=== PATIENT | female | born 1935 | race Asian ===

== ENCOUNTER 2021-05-20 12:19 | Inpatient (IN) | payer MEDICARE ==
[~2021-05-20] VITALS: Ht 154.9 cm; Wt 54.2 kg
[2021-05-20 13:49] LABS: BASOPHILS % (AUTO) 0.5 % (0.0-2.0); EOSINOPHILS % (AUTO) 0.2 % (1.0-6.0); HEMATOCRIT 41.6 % (36-46); HEMOGLOBIN 13.4 g/dL (12.0-16.0); MEAN CORPUSCULAR HEMOGLOBIN 26.2 pg (26.0-34.0); MEAN CORPUSCULAR HGB CONC 32.3 G/dL (31.0-37.0); MEAN CORPUSCULAR VOLUME 81 fL (80-100); MONOCYTES # (AUTO) 0.4 K/uL (0.1-1.0); MONOCYTES % (AUTO) 4.8 % (2.0-9.0); NEUTROPHILS % (AUTO) 81.5 % (40.0-70.0); PLATELET COUNT (AUTO) 218 K/uL (150-450); RED BLOOD CELL COUNT(AUTO) 5.12 MIL/uL (4.00-5.20); RED CELL DISTRIBUTION WIDTH 15.7 % (11.5-14.5)
[2021-05-20 13:55] LABS: ANION GAP 11 mmol/L (8-16); CALCIUM, TOTAL 9.1 mg/dL (8.8-10.5); CARBON DIOXIDE 25 mmol/L (22-29); CHLORIDE 99 mmol/L (98-107); CREATININE 0.84 mg/dL (0.60-1.30); GLOMERULAR FILTR. RATE CALC > 60 mL/min (>60); GLUCOSE,RANDOM 189 mg/dL (70-110); SODIUM SERUM 135 mmol/L (136-145); UREA NITROGEN, BLOOD 15 mg/dL (7-18)
[2021-05-20 14:01] LABS: ALANINE AMINOTRANSFERASE 40 U/L (12-78); ALBUMIN 4.1 g/dL (3.4-5.0); ALKALINE PHOSPHATASE 82 U/L (46-116); ASPARTATE AMINOTRANSFERASE 32 U/L (15-37); BILIRUBIN,TOTAL 1.1 mg/dL (0.1-1.0); TOTAL PROTEIN, SERUM 8.1 g/dL (6.4-8.2)
[2021-05-20 14:07] LABS: B-TYPE NATRIURETIC PEPTIDE 428 pg/mL (0-100)
[2021-05-20] MEDS ORDERED: DILTIAZEM HCL 5 MG/ML 5 ML VIAL IVP ONE (14:15)
[2021-05-20] MEDS ORDERED: CALCIUM GLUCONATE 100 MG/ML 10 ML IVP ONE (14:15)
[2021-05-20] MEDS ORDERED: FUROSEMIDE 40 MG/4 ML VIAL IVP ONE (14:15)
[2021-05-20] MEDS ORDERED: ONDANSETRON HCL 4 MG/2 ML VIAL IVP ONE (14:15)
[2021-05-20] MEDS ORDERED: ONDANSETRON HCL 4 MG/2 ML VIAL IVP PRN ×2 (15:15→15:45)
[2021-05-20] MEDS ORDERED: 0.9% SODIUM CHLORIDE 10 ML SYRINGE IVP PRN (15:15)
[2021-05-20] MEDS ORDERED: METOPROLOL TARTRATE 50 MG TABLET PO ONE (15:15)
[2021-05-20] MEDS ORDERED: ACETAMINOPHEN 325 MG TABLET PO PRN ×2 (15:15→15:45)
[2021-05-20] MEDS ORDERED: ZOLPIDEM TARTRATE 5 MG TABLET PO PRN (15:45)
[2021-05-20] MEDS ORDERED: MAGNESIUM HYDROXIDE SUSPENSION 30 ML UDCUP PO PRN (15:45)
[2021-05-20] MEDS ORDERED: BISACODYL 10 MG RECTAL RECTAL SUPPOSITORY PR PRN (15:45)
[2021-05-20] MEDS ORDERED: MORPHINE SULFATE 2 MG/ML SYRINGE IVP PRN (15:45)
[2021-05-20] MEDS ORDERED: HYDROCODONE/ACETAMINOPHEN 5-325 MG TABLET PO PRN (15:45)
[2021-05-20] MEDS: HEPARIN SODIUM,PORCINE 5,000 UNITS/ML VIAL SQ SCH (16:00)
[2021-05-20 16:15] VITALS: BP 99/53
[2021-05-20] MEDS ORDERED: DEXTROSE 50%-WATER 25 GM/50 ML SYRINGE IVP PRN (16:45)
[2021-05-20] MEDS: ASPIRIN 81 MG CHEWABLE TABLET PO SCH (17:00)
[2021-05-20] MEDS: INSULIN LISPRO 100 UNITS/ML SQ PRN ×2 (18:11→21:08)
[2021-05-20 19:14] VITALS: BP 99/51
[2021-05-20] MEDS: METOPROLOL TARTRATE 25 MG TABLET PO SCH (20:30)
[2021-05-20] MEDS: DOCUSATE SODIUM 100 MG CAPSULE PO SCH (20:30)
[2021-05-20 20:57] VITALS: BP_SYST 140; BP_SYST 67; BP_DIAS 18; BP_DIAS 67
[2021-05-20 21:22] LABS: GLUCOMETER DEV NAME(LOC) 5S.2B; GLUCOSE,POINT OF CARE 217 MG/DL (70-110)
[2021-05-20 21:22] LABS: GLUCOMETER DEV NAME(LOC) 5S.2B; GLUCOSE,POINT OF CARE 163 MG/DL (70-110)
[2021-05-21] VITALS (8 sets, daily range): BP systolic 94–124; BP diastolic 55–79
[2021-05-21] MEDS: HEPARIN SODIUM,PORCINE 5,000 UNITS/ML VIAL SQ SCH ×2 (00:38→08:29)
[2021-05-21] MEDS ORDERED: FUROSEMIDE 20 MG/2 ML VIAL IVP ONE (07:00)
[2021-05-21 07:49] LABS: BASOPHILS % (AUTO) 0.3 % (0.0-2.0); EOSINOPHILS % (AUTO) 0.3 % (1.0-6.0); HEMOGLOBIN 12.3 g/dL (12.0-16.0); LYMPHOCYTES # (AUTO) 1.2 K/uL (1.0-4.8); LYMPHOCYTES % (AUTO) 15.8 % (22.0-44.0); MEAN CORPUSCULAR HEMOGLOBIN 26.5 pg (26.0-34.0); MEAN CORPUSCULAR HGB CONC 32.4 G/dL (31.0-37.0); MEAN CORPUSCULAR VOLUME 82 fL (80-100); MONOCYTES # (AUTO) 0.4 K/uL (0.1-1.0); MONOCYTES % (AUTO) 4.9 % (2.0-9.0); NEUTROPHILS # (AUTO) 5.8 K/uL (1.8-7.7); NEUTROPHILS % (AUTO) 78.7 % (40.0-70.0); PLATELET COUNT (AUTO) 201 K/uL (150-450); RED BLOOD CELL COUNT(AUTO) 4.66 MIL/uL (4.00-5.20); RED CELL DISTRIBUTION WIDTH 15.4 % (11.5-14.5)
[2021-05-21 08:12] LABS: CALCIUM, TOTAL 8.6 mg/dL (8.8-10.5); CREATININE 1.41 mg/dL (0.60-1.30); POTASSIUM 5.4 mmol/L (3.5-5.1)
[2021-05-21 08:17] LABS: HEMOGLOBIN A1C 7.5 % (3.8-5.6)
[2021-05-21] MEDS: DOCUSATE SODIUM 100 MG CAPSULE PO SCH ×2 (08:29→20:33)
[2021-05-21] MEDS: PANTOPRAZOLE SODIUM 40 MG DR TABLET PO SCH (08:29)
[2021-05-21] MEDS: ASPIRIN 81 MG CHEWABLE TABLET PO SCH (08:29)
[2021-05-21] MEDS: METOPROLOL TARTRATE 25 MG TABLET PO SCH ×2 (09:00→20:26)
[2021-05-21] MEDS ORDERED: HEPARIN SODIUM,PORCINE 5,000 UNITS/ML VIAL IVP ONE (10:00)
[2021-05-21] MEDS ORDERED: HEPARIN SODIUM 25000 UNITS/D5W 250 ML IV PRN (10:00)
[2021-05-21] MEDS ORDERED: HEPARIN SODIUM,PORCINE 5,000 UNITS/ML VIAL IVP PRN ×2 (10:00)
[2021-05-21 10:31] LABS: PROTHROMBIN TIME 10.5 SEC (9.4-11.6)
[2021-05-21] MEDS ORDERED: SESTAMIBI TC99M/UD ISOTOPE 1 EA INJ INJ ONE ×2 (12:10→14:50)
[2021-05-21] MEDS ORDERED: SODIUM POLYSTYRENE SULFONATE 15 GM/60 ML SUSPENSION BOTTLE PO ONE (12:30)
[2021-05-21] MEDS ORDERED: REGADENOSON 0.4 MG/5 ML PF SYRINGE IVP ONE ×2 (13:30→14:09)
[2021-05-21] MEDS ORDERED: PNEUMOCOCCAL VACCINE POLYVALENT 0.5 ML VIAL [PPSV23] IM. ONE (16:00)
[2021-05-21] MEDS ORDERED: INFLUENZA VIRUS VACCINE QVS 2021-22 (6MO+)/PF 60 MCG/0.5 ML SYRINGE IM. ONE (16:00)
[2021-05-21 17:32] LABS: GLUCOMETER DEV NAME(LOC) 5S.1; GLUCOSE,POINT OF CARE 95 MG/DL (70-110)
[2021-05-21 17:32] LABS: GLUCOMETER DEV NAME(LOC) 5S.1; GLUCOSE,POINT OF CARE 180 MG/DL (70-110)
[2021-05-21] MEDS: INSULIN LISPRO 100 UNITS/ML SQ PRN ×2 (17:52→20:34)
[2021-05-21 18:24] LABS: APPEARANCE,URINE CLOUDY (CLEAR); BILIRUBIN,URINE NEGATIVE (NEGATIVE); GLUCOSE, URINE (UA) NEGATIVE (NEGATIVE); KETONES,URINE NEGATIVE (NEGATIVE); LEUKOCYTE ESTERASE ,URINE LARGE (NEGATIVE); NITRATE,URINE NEGATIVE (NEGATIVE); OCCULT BLOOD,URINE TRACE (NEGATIVE); PROTEIN,URINE NEGATIVE (NEGATIVE); UROBILINOGEN,URINE 0.2 mg/dL (<=1.0)
[2021-05-21 18:31] LABS: CREATININE,URINE RANDOM 77.1 mg/dL (30.0-125.0); PROTEIN,URINE RANDOM 19 mg/dL (0-11.9); SODIUM,URINE RANDOM 14 mmol/l (20-110); UREA NITROGEN,URINE RANDOM 581 mg/dL (350-1000)
[2021-05-21 18:56] LABS: AMORPHOUS SEDIMENT,UR None Seen /LPF (None Seen); BACTERIA,URINE Moderate /HPF (None Seen); CALCIUM OXALATE CRYSTALS,UR None Seen /LPF (None Seen); CALCIUM PHOSPHATE CRYSTALS,UR None Seen /LPF (None Seen); COARSE GRANULAR CASTS,URINE None Seen /LPF (None Seen); FINE GRANULAR CASTS,URINE None Seen /LPF (None Seen); HYALINE CASTS, URINE None Seen /LPF (None Seen); OTHER CASTS, URINE None Seen /LPF (None Seen); OTHER CRYSTALS,URINE None Seen /LPF (None Seen); RBC,URINE 0-2 /HPF (0-2); RENAL EPITHELIAL CELLS,URINE None Seen /LPF (None Seen); SQUAMOUS EPITHELIAL CELL,UR Few /LPF (None Seen); TRANSITIONAL EPI CELLS,URINE None Seen /LPF (None Seen); TRIPLE PHOSPHATE CRYSTAL,UR None Seen /LPF (None Seen); URIC ACID CRYSTALS,URINE None Seen /LPF (None Seen); YEAST,URINE None Seen /HPF (None Seen)
[2021-05-21 19:08] LABS: GLUCOMETER DEV NAME(LOC) 5S.2B; GLUCOSE,POINT OF CARE 156 MG/DL (70-110)
[2021-05-21] MEDS: FUROSEMIDE 40 MG/4 ML VIAL IVP SCH (20:33)
[2021-05-22 00:16] VITALS: BP 108/63
[2021-05-22 04:57] LABS: GLUCOMETER DEV NAME(LOC) 5S.2B; GLUCOSE,POINT OF CARE 155 MG/DL (70-110)
[2021-05-22 05:21] VITALS: BP 116/82
[2021-05-22] MEDS: INSULIN LISPRO 100 UNITS/ML SQ PRN ×2 (06:39→20:23)
[2021-05-22 08:03] LABS: GLUCOMETER DEV NAME(LOC) 5S.1; GLUCOSE,POINT OF CARE 141 MG/DL (70-110)
[2021-05-22 08:29] VITALS: BP 114/79
[2021-05-22] MEDS: PANTOPRAZOLE SODIUM 40 MG DR TABLET PO SCH (08:43)
[2021-05-22] MEDS: DOCUSATE SODIUM 100 MG CAPSULE PO SCH ×2 (08:44→20:21)
[2021-05-22] MEDS: METOPROLOL TARTRATE 25 MG TABLET PO SCH (08:44)
[2021-05-22] MEDS: ASPIRIN 81 MG CHEWABLE TABLET PO SCH (08:44)
[2021-05-22] MEDS: FUROSEMIDE 40 MG/4 ML VIAL IVP SCH (08:44)
[2021-05-22] MEDS: METOPROLOL SUCCINATE 25 MG ER TABLET PO SCH ×2 (09:45→10:39)
[2021-05-22 12:06] LABS: BASOPHILS % (AUTO) 0.4 % (0.0-2.0); HEMATOCRIT 34.9 % (36-46); HEMOGLOBIN 11.2 g/dL (12.0-16.0); LYMPHOCYTES # (AUTO) 1.2 K/uL (1.0-4.8); LYMPHOCYTES % (AUTO) 19.5 % (22.0-44.0); MEAN CORPUSCULAR HEMOGLOBIN 26.1 pg (26.0-34.0); MEAN CORPUSCULAR HGB CONC 32.1 G/dL (31.0-37.0); MEAN CORPUSCULAR VOLUME 81 fL (80-100); MONOCYTES # (AUTO) 0.4 K/uL (0.1-1.0); MONOCYTES % (AUTO) 6.7 % (2.0-9.0); NEUTROPHILS # (AUTO) 4.6 K/uL (1.8-7.7); NEUTROPHILS % (AUTO) 72.4 % (40.0-70.0); PLATELET COUNT (AUTO) 200 K/uL (150-450); RED BLOOD CELL COUNT(AUTO) 4.29 MIL/uL (4.00-5.20); RED CELL DISTRIBUTION WIDTH 15.7 % (11.5-14.5)
[2021-05-22 12:16] VITALS: BP 111/71
[2021-05-22 12:35] LABS: CREATININE 1.15 mg/dL (0.60-1.30); PHOSPHORUS 4.7 mg/dL (2.5-4.9)
[2021-05-22 13:10] LABS: GLUCOMETER DEV NAME(LOC) 5S.2B; GLUCOSE,POINT OF CARE 165 MG/DL (70-110)
[2021-05-22] MEDS ORDERED: PNEUMOCOCCAL VACCINE POLYVALENT 0.5 ML VIAL [PPSV23] IM. ONE (13:15)
[2021-05-22 15:36] VITALS: BP 123/50
[2021-05-22 19:10] LABS: GLUCOMETER DEV NAME(LOC) 5S.1; GLUCOSE,POINT OF CARE 180 MG/DL (70-110)
[2021-05-22 20:16] VITALS: BP 121/60
[2021-05-22] MEDS: APIXABAN 2.5 MG TABLET PO SCH (20:21)
[2021-05-22 20:40] LABS: GLUCOMETER DEV NAME(LOC) 5S.2B; GLUCOSE,POINT OF CARE 208 MG/DL (70-110)
[2021-05-23 00:12] VITALS: BP 115/68
[2021-05-23 06:03] VITALS: BP 120/62
[2021-05-23 06:51] LABS: BASOPHILS % (AUTO) 0.7 % (0.0-2.0); EOSINOPHILS % (AUTO) 1.2 % (1.0-6.0); HEMATOCRIT 33.7 % (36-46); HEMOGLOBIN 10.8 g/dL (12.0-16.0); LYMPHOCYTES # (AUTO) 1.4 K/uL (1.0-4.8); LYMPHOCYTES % (AUTO) 26.8 % (22.0-44.0); MEAN CORPUSCULAR HGB CONC 32.1 G/dL (31.0-37.0); MEAN CORPUSCULAR VOLUME 81 fL (80-100); MONOCYTES # (AUTO) 0.5 K/uL (0.1-1.0); MONOCYTES % (AUTO) 9.2 % (2.0-9.0); NEUTROPHILS # (AUTO) 3.3 K/uL (1.8-7.7); NEUTROPHILS % (AUTO) 62.1 % (40.0-70.0); PLATELET COUNT (AUTO) 197 K/uL (150-450); RED BLOOD CELL COUNT(AUTO) 4.17 MIL/uL (4.00-5.20); RED CELL DISTRIBUTION WIDTH 15.8 % (11.5-14.5)
[2021-05-23 07:04] LABS: CALCIUM, TOTAL 8.8 mg/dL (8.8-10.5); CREATININE 0.94 mg/dL (0.60-1.30); POTASSIUM 3.9 mmol/L (3.5-5.1)
[2021-05-23 07:36] VITALS: BP 139/73
[2021-05-23 07:47] LABS: GLUCOMETER DEV NAME(LOC) 5S.2B; GLUCOSE,POINT OF CARE 134 MG/DL (70-110)
[2021-05-23] MEDS: APIXABAN 2.5 MG TABLET PO SCH (08:58)
[2021-05-23] MEDS: ASPIRIN 81 MG CHEWABLE TABLET PO SCH (08:58)
[2021-05-23] MEDS: DOCUSATE SODIUM 100 MG CAPSULE PO SCH (08:58)
[2021-05-23] MEDS: PANTOPRAZOLE SODIUM 40 MG DR TABLET PO SCH (08:59)
[2021-05-23] MEDS ORDERED: METOPROLOL SUCCINATE 50 MG ER TABLET PO SCH (09:00)
[2021-05-23] MEDS ORDERED: FUROSEMIDE 40 MG TABLET PO SCH (09:00)
[2021-05-23 11:38] LABS: GLUCOMETER DEV NAME(LOC) 5S.1; GLUCOSE,POINT OF CARE 241 MG/DL (70-110)
[2021-05-23 12:08] VITALS: BP 120/73
[2021-05-23] MEDS: INSULIN LISPRO 100 UNITS/ML SQ PRN (12:17)
[2021-05-23] MEDS ORDERED: METO-558 PO (13:09)
[2021-05-23] MEDS ORDERED: APIX2.5T PO (13:09)
[2021-05-23] MEDS ORDERED: FURO40 PO (13:09)
[2021-05-23] MEDS ORDERED: ASPI81TA39 PO (13:11)
[2021-05-23] MEDS ORDERED: DOCU-270 PO (13:12)
[2021-05-23] MEDS ORDERED: LOSA25TA21 PO (13:13)
[2021-05-23] MEDS ORDERED: PANT-31 PO (13:14)
[2021-05-23] MEDS ORDERED: ACET-3207 PO (13:15)
[2021-05-23] MEDS ORDERED: BISA10SU11 PR (13:16)
[2021-05-23] MEDS ORDERED: HYDR-4396 PO (13:17)
[2021-05-23] MEDS ORDERED: MOM30 PO (13:20)
[2021-05-23] MEDS ORDERED: ONDA4VIA22 IV (13:22)
[2021-05-23] MEDS ORDERED: ZOLP-280 PO (13:23)
[2021-05-24] MEDS ORDERED: LOSARTAN POTASSIUM 25 MG TABLET PO SCH (09:00)
== END 2021-05-23 14:10 | disposition home or self-care (01) | DRG 291 ==
LOC: EMS 12:24 → 5S 15:27
PROVIDERS: ADMIT Internal Medicine; ATTEND Internal Medicine
DX: I11.0 Hypertensive heart disease with heart failure (principal); I50.43 Acute on chronic combined systolic (congestive) and diastolic (congestive) heart failure; E87.1 Hypo-osmolality and hyponatremia; N17.9 Acute kidney failure, unspecified; J91.8 Pleural effusion in other conditions classified elsewhere; I48.91 Unspecified atrial fibrillation; E87.5 Hyperkalemia; E11.65 Type 2 diabetes mellitus with hyperglycemia; Z20.822 Contact with and (suspected) exposure to COVID-19; Z90.710 Acquired absence of both cervix and uterus
CPT/HCPCS: 70450; 71045; 76770; 78452; 80048; 80053; 80061; 81001; 82570; 82962; 83036; 83735; 83880; 84100; 84145; 84156; 84300; 84443; 84484; 84540; 85025; 85610; 85730; 87077; 87086; 87186; 90686; 93005; 93306; 99291; A9500; G0378; J0610; J1644; J1940; J2270; J2405; J2785; J3490; 36415-L1; 36415-TC; G0008

== ENCOUNTER 2021-06-24 11:01 | Inpatient (IN) | payer MEDICARE ==
[~2021-06-24] VITALS: Ht 157.5 cm; Wt 60.0 kg
[~2021-06-24 11:01] MED LIST: APIX2.5T PO; ASPI81TA39 PO; FURO40 PO; LOSA25TA21 PO; METO-558 PO
[2021-06-24 11:47] LABS: BASOPHILS % (AUTO) 0.8 % (0.0-2.0); EOSINOPHILS % (AUTO) 0.1 % (1.0-6.0); HEMATOCRIT 42.7 % (36-46); HEMOGLOBIN 13.6 g/dL (12.0-16.0); LYMPHOCYTES # (AUTO) 1.1 K/uL (1.0-4.8); LYMPHOCYTES % (AUTO) 14.7 % (22.0-44.0); MEAN CORPUSCULAR HEMOGLOBIN 25.7 pg (26.0-34.0); MEAN CORPUSCULAR HGB CONC 31.8 G/dL (31.0-37.0); MEAN CORPUSCULAR VOLUME 81 fL (80-100); MONOCYTES # (AUTO) 0.3 K/uL (0.1-1.0); MONOCYTES % (AUTO) 4.6 % (2.0-9.0); NEUTROPHILS # (AUTO) 5.8 K/uL (1.8-7.7); NEUTROPHILS % (AUTO) 79.8 % (40.0-70.0); PLATELET COUNT (AUTO) 211 K/uL (150-450); RED BLOOD CELL COUNT(AUTO) 5.28 MIL/uL (4.00-5.20)
[2021-06-24 11:48] LABS: COVID AG,FIA SOURCE NASOPHARYNGEAL
[2021-06-24 11:59] LABS: CALCIUM, TOTAL 9.1 mg/dL (8.8-10.5); CREATININE 1.38 mg/dL (0.60-1.30)
[2021-06-24 12:03] LABS: POTASSIUM 6.1 mmol/L (3.5-5.1)
[2021-06-24 12:05] LABS: ALBUMIN 3.9 g/dL (3.4-5.0); BILIRUBIN,TOTAL 0.8 mg/dL (0.1-1.0); PHOSPHORUS 4.9 mg/dL (2.5-4.9); TOTAL PROTEIN, SERUM 7.8 g/dL (6.4-8.2)
[2021-06-24 12:07] LABS: INFLUENZA TYPE A NEGATIVE FOR TYPE A (NEGATIVE); INFLUENZA TYPE B NEGATIVE FOR TYPE B (NEGATIVE)
[2021-06-24 12:08] LABS: INR 1.1 (0.9-1.1); PROTHROMBIN TIME 11.4 SEC (9.4-11.6)
[2021-06-24] MEDS ORDERED: INSULIN REGULAR, HUMAN 100 UNITS/ML IVP ONE (12:15)
[2021-06-24] MEDS ORDERED: FUROSEMIDE 20 MG/2 ML VIAL IVP ONE (12:15)
[2021-06-24] MEDS ORDERED: ALBUTEROL SULFATE 5 MG/ML 20 ML NEB SOLN [BULK] NEB ONE (12:15)
[2021-06-24] MEDS ORDERED: PIPERACILLIN/TAZO 3.375 GM/D5W 50 ML IV ONE (12:30)
[2021-06-24] MEDS ORDERED: AZITHROMYCIN 500 MG/NS 250 ML IV ONE (12:30)
[2021-06-24] MEDS ORDERED: VANCOMYCIN HCL 1 GM/D5% WATER 200 ML IV ONE (12:30)
[2021-06-24] MEDS ORDERED: DEXTROSE 50%-WATER 25 GM/50 ML SYRINGE IVP PRN (12:45)
[2021-06-24] MEDS ORDERED: AMIODARONE HCL 150 MG in DEXTROSE 5%-WATER 97 ML IV ONE (12:45)
[2021-06-24] MEDS ORDERED: AMIODARONE HCL 360 MG in DEXTROSE 5%-WATER 242.8 ML IV ONE (12:45)
[2021-06-24] MEDS ORDERED: ALBUTEROL SULFATE 2.5 MG/0.5 ML NEB SOLUTION NEB PRN (12:45)
[2021-06-24] MEDS ORDERED: ACETAMINOPHEN 325 MG TABLET PO PRN (12:45)
[2021-06-24] MEDS ORDERED: ONDANSETRON HCL 4 MG/2 ML VIAL IVP PRN (12:45)
[2021-06-24] MEDS ORDERED: IOHEXOL 350 MG/ML 100 ML VIAL ONE (13:34)
[2021-06-24] MEDS ORDERED: SODIUM CHLORIDE 0.9% 0 ML ONE (13:34)
[2021-06-24 14:22] LABS: GLUCOMETER DEV NAME(LOC) ERT.5; GLUCOSE,POINT OF CARE 228 MG/DL (70-110)
[2021-06-24] MEDS: INSULIN LISPRO 100 UNITS/ML SQ PRN (15:00)
[2021-06-24] MEDS ORDERED: SODIUM CHLORIDE 0.9% 500 ML IV ONE (15:10)
[2021-06-24 17:47] LABS: APPEARANCE,URINE CLOUDY (CLEAR); BILIRUBIN,URINE NEGATIVE (NEGATIVE); GLUCOSE, URINE (UA) NEGATIVE (NEGATIVE); KETONES,URINE NEGATIVE (NEGATIVE); LEUKOCYTE ESTERASE ,URINE LARGE (NEGATIVE); NITRATE,URINE POSITIVE (NEGATIVE); OCCULT BLOOD,URINE TRACE (NEGATIVE); PROTEIN,URINE SEE CONFIRM (NEGATIVE); UROBILINOGEN,URINE 0.2 mg/dL (<=1.0)
[2021-06-24 17:54] LABS: BACTERIA,URINE Many /HPF (None Seen); RBC,URINE 0-2 /HPF (0-2); SQUAMOUS EPITHELIAL CELL,UR Moderate /LPF (None Seen); SULFOSALICYLIC ACID,URINE 3+ (Negative); WBC,URINE 51-100 /HPF (0-5)
[2021-06-24] MEDS ORDERED: AMIODARONE HCL 540 MG in DEXTROSE 5%-WATER 239.2 ML IV ONE (18:45)
[2021-06-24] MEDS: APIXABAN 2.5 MG TABLET PO SCH (20:13)
[2021-06-24] MEDS: DOCUSATE SODIUM 100 MG CAPSULE PO SCH (20:19)
[2021-06-25 01:00] VITALS: BP 112/76
[2021-06-25 04:15] VITALS: BP 115/70
[2021-06-25] MEDS: INSULIN LISPRO 100 UNITS/ML SQ PRN ×4 (06:36→21:58)
[2021-06-25 07:17] LABS: BASOPHILS % (AUTO) 0.5 % (0.0-2.0); EOSINOPHILS % (AUTO) 0 % (1.0-6.0); HEMATOCRIT 38.6 % (36-46); HEMOGLOBIN 12.3 g/dL (12.0-16.0); LYMPHOCYTES # (AUTO) 1.6 K/uL (1.0-4.8); MEAN CORPUSCULAR HEMOGLOBIN 25.2 pg (26.0-34.0); MEAN CORPUSCULAR HGB CONC 31.8 G/dL (31.0-37.0); MEAN CORPUSCULAR VOLUME 79 fL (80-100); MONOCYTES # (AUTO) 0.6 K/uL (0.1-1.0); MONOCYTES % (AUTO) 6.5 % (2.0-9.0); NEUTROPHILS # (AUTO) 6.5 K/uL (1.8-7.7); PLATELET COUNT (AUTO) 190 K/uL (150-450); RED BLOOD CELL COUNT(AUTO) 4.87 MIL/uL (4.00-5.20); RED CELL DISTRIBUTION WIDTH 16.3 % (11.5-14.5)
[2021-06-25 07:34] LABS: CALCIUM, TOTAL 8.5 mg/dL (8.8-10.5); CREATININE 1.71 mg/dL (0.60-1.30); POTASSIUM 5.6 mmol/L (3.5-5.1)
[2021-06-25 07:47] VITALS: BP 99/66
[2021-06-25] MEDS ORDERED: SODIUM ZIRCONIUM CYCLOSILICATE 5 GM POWDER PACKET PO ONE (08:30)
[2021-06-25] MEDS: DOCUSATE SODIUM 100 MG CAPSULE PO SCH ×2 (08:35→20:40)
[2021-06-25] MEDS: FAMOTIDINE 20 MG TABLET PO SCH (08:35)
[2021-06-25] MEDS: APIXABAN 2.5 MG TABLET PO SCH ×2 (08:35→20:40)
[2021-06-25] MEDS ORDERED: FUROSEMIDE 40 MG/4 ML VIAL IVP SCH (09:00)
[2021-06-25] MEDS ORDERED: SODIUM CHLORIDE 0.9% 500 ML IV ONE (10:40)
[2021-06-25] MEDS: CefTRIAXone 1 GM/DEXTROSE 50 ML IV SCH (10:53)
[2021-06-25 11:23] VITALS: BP 104/70
[2021-06-25] MEDS: METOPROLOL SUCCINATE 25 MG ER TABLET PO SCH (12:13)
[2021-06-25] MEDS ORDERED: AMIODARONE HCL 750 MG in DEXTROSE 5%-WATER 485 ML IV SCH (13:00)
[2021-06-25 15:29] VITALS: BP 118/81
[2021-06-25] MEDS: FUROSEMIDE 40 MG TABLET PO SCH (15:49)
[2021-06-25 19:42] VITALS: BP 102/74
[2021-06-25] MEDS: AMIODARONE HCL 200 MG TABLET PO SCH (20:40)
[2021-06-26 00:05] VITALS: BP 99/66
[2021-06-26 03:26] VITALS: BP 126/72
[2021-06-26 06:44] LABS: GLUCOMETER DEV NAME(LOC) 5N.3; GLUCOSE,POINT OF CARE 225 MG/DL (70-110)
[2021-06-26 06:44] LABS: GLUCOMETER DEV NAME(LOC) 5S.1; GLUCOSE,POINT OF CARE 135 MG/DL (70-110)
[2021-06-26 06:44] LABS: GLUCOMETER DEV NAME(LOC) 5N.3; GLUCOSE,POINT OF CARE 214 MG/DL (70-110)
[2021-06-26 06:44] LABS: GLUCOMETER DEV NAME(LOC) 5N.3; GLUCOSE,POINT OF CARE 187 MG/DL (70-110)
[2021-06-26 06:44] LABS: GLUCOMETER DEV NAME(LOC) 5S.1; GLUCOSE,POINT OF CARE 151 MG/DL (70-110)
[2021-06-26 06:44] LABS: GLUCOMETER DEV NAME(LOC) 5N.3; GLUCOSE,POINT OF CARE 186 MG/DL (70-110)
[2021-06-26 07:08] LABS: CALCIUM, TOTAL 8.7 mg/dL (8.8-10.5); CREATININE 1.77 mg/dL (0.60-1.30); MAGNESIUM 2.2 mg/dL (1.80-2.40); PHOSPHORUS 4.7 mg/dL (2.5-4.9); POTASSIUM 4.7 mmol/L (3.5-5.1)
[2021-06-26 07:46] VITALS: BP 144/70
[2021-06-26] MEDS ORDERED: TOLVAPTAN 15 MG TABLET PO ONE (08:15)
[2021-06-26] MEDS: FUROSEMIDE 40 MG TABLET PO SCH (09:08)
[2021-06-26] MEDS: AMIODARONE HCL 200 MG TABLET PO SCH ×2 (09:08→20:11)
[2021-06-26] MEDS: CefTRIAXone 1 GM/DEXTROSE 50 ML IV SCH (09:08)
[2021-06-26] MEDS: FAMOTIDINE 20 MG TABLET PO SCH (09:08)
[2021-06-26] MEDS: APIXABAN 2.5 MG TABLET PO SCH ×2 (09:08→20:11)
[2021-06-26] MEDS: METOPROLOL SUCCINATE 25 MG ER TABLET PO SCH (09:08)
[2021-06-26] MEDS: DOCUSATE SODIUM 100 MG CAPSULE PO SCH ×2 (09:08→20:11)
[2021-06-26 11:22] VITALS: BP 110/77
[2021-06-26] MEDS: INSULIN LISPRO 100 UNITS/ML SQ PRN ×3 (11:36→20:14)
[2021-06-26] MEDS ORDERED: DIGOXIN 250 MCG/ML 2 ML AMP IVP ONE (12:30)
[2021-06-26] MEDS ORDERED: METOPROLOL SUCCINATE 25 MG ER TABLET PO ONE (12:30)
[2021-06-26] MEDS: NITROGLYCERIN 0.3 MG SUBLINGUAL TABLET #100 SL PRN ×2 (15:25→15:30)
[2021-06-26 16:49] VITALS: BP 146/70
[2021-06-26 19:39] LABS: GLUCOMETER DEV NAME(LOC) 5S.1; GLUCOSE,POINT OF CARE 175 MG/DL (70-110)
[2021-06-26 19:39] LABS: GLUCOMETER DEV NAME(LOC) 5S.1; GLUCOSE,POINT OF CARE 241 MG/DL (70-110)
[2021-06-26 19:59] VITALS: BP 101/61
[2021-06-26 22:31] LABS: GLUCOMETER DEV NAME(LOC) 5N.3; GLUCOSE,POINT OF CARE 220 MG/DL (70-110)
[2021-06-27 00:02] VITALS: BP 105/58
[2021-06-27 04:21] VITALS: BP 119/73
[2021-06-27 05:51] LABS: GLUCOMETER DEV NAME(LOC) 5S.2B; GLUCOSE,POINT OF CARE 195 MG/DL (70-110)
[2021-06-27] MEDS: INSULIN LISPRO 100 UNITS/ML SQ PRN ×2 (06:08→12:32)
[2021-06-27 06:18] LABS: CALCIUM, TOTAL 8.7 mg/dL (8.8-10.5); CREATININE 1.69 mg/dL (0.60-1.30); MAGNESIUM 2.2 mg/dL (1.80-2.40); PHOSPHORUS 4.5 mg/dL (2.5-4.9); POTASSIUM 4.6 mmol/L (3.5-5.1)
[2021-06-27 07:25] VITALS: BP 105/51
[2021-06-27] MEDS: FAMOTIDINE 20 MG TABLET PO SCH (08:10)
[2021-06-27] MEDS: APIXABAN 2.5 MG TABLET PO SCH (08:10)
[2021-06-27] MEDS: AMIODARONE HCL 200 MG TABLET PO SCH (08:10)
[2021-06-27] MEDS: FUROSEMIDE 40 MG TABLET PO SCH (08:10)
[2021-06-27] MEDS: DOCUSATE SODIUM 100 MG CAPSULE PO SCH (08:11)
[2021-06-27] MEDS ORDERED: METOPROLOL SUCCINATE 50 MG ER TABLET PO SCH (09:00)
[2021-06-27] MEDS: CefTRIAXone 1 GM/DEXTROSE 50 ML IV SCH (09:30)
[2021-06-27] MEDS ORDERED: AMIO200T68 PO (10:23)
[2021-06-27] MEDS ORDERED: CIPR250T6 PO (10:29)
[2021-06-27 12:10] VITALS: BP 120/65
[2021-06-27 12:17] LABS: GLUCOMETER DEV NAME(LOC) 5S.2B; GLUCOSE,POINT OF CARE 155 MG/DL (70-110)
[2021-06-27 16:01] VITALS: BP 142/73
[2021-06-27 16:13] VITALS: BP 136/76
== END 2021-06-27 16:20 | disposition home or self-care (01) | DRG 291 ==
LOC: EMS 11:05 → 5N 22:00 → UNDOADMIN 22:00 → 5N 06-25 00:15 → 5S 06-26 17:22
PROVIDERS: ADMIT Internal Medicine; ATTEND Internal Medicine
DX: I13.0 Hypertensive heart and chronic kidney disease with heart failure and stage 1 through stage 4 chronic kidney disease, or unspecified chronic kidney disease (principal); I50.23 Acute on chronic systolic (congestive) heart failure; J18.9 Pneumonia, unspecified organism; J96.91 Respiratory failure, unspecified with hypoxia; N17.9 Acute kidney failure, unspecified; N39.0 Urinary tract infection, site not specified; E87.1 Hypo-osmolality and hyponatremia; I42.9 Cardiomyopathy, unspecified; E87.5 Hyperkalemia; I25.10 Atherosclerotic heart disease of native coronary artery without angina pectoris; I48.91 Unspecified atrial fibrillation; E11.22 Type 2 diabetes mellitus with diabetic chronic kidney disease; Z20.822 Contact with and (suspected) exposure to COVID-19; F41.9 Anxiety disorder, unspecified; N18.9 Chronic kidney disease, unspecified; Z79.01 Long term (current) use of anticoagulants; Z79.82 Long term (current) use of aspirin; Z79.899 Other long term (current) drug therapy; Z82.49 Family history of ischemic heart disease and other diseases of the circulatory system; Z83.3 Family history of diabetes mellitus; Z90.710 Acquired absence of both cervix and uterus
CPT/HCPCS: 71045; 80048; 80053; 81001; 81002; 82550; 82962; 83735; 83880; 84100; 84484; 85025; 85610; 85730; 87086; 87804; 93005; 94640; 99291; J0282; J0456; J0696; J1160; J1815; J1940; J2543; J3370; J7040; J7050; J7060; Q9967; 36415-L1; 36415-TC; U0003

== ENCOUNTER 2021-08-06 12:35 | Inpatient (IN) | payer MEDICARE ==
[~2021-08-06] VITALS: Ht 147.3 cm; Wt 63.2 kg
[~2021-08-06 12:35] MED LIST changes: +AMIO200T68 PO; +CIPR250T6 PO; +LOSA-370 PO; -LOSA25TA21 PO
[2021-08-06 13:10] LABS: BASOPHILS % (AUTO) 0.9 % (0.0-2.0); HEMATOCRIT 40.5 % (36-46); HEMOGLOBIN 12.8 g/dL (12.0-16.0); LYMPHOCYTES # (AUTO) 0.9 K/uL (1.0-4.8); LYMPHOCYTES % (AUTO) 16.6 % (22.0-44.0); MEAN CORPUSCULAR HEMOGLOBIN 24.6 pg (26.0-34.0); MEAN CORPUSCULAR HGB CONC 31.5 G/dL (31.0-37.0); MEAN CORPUSCULAR VOLUME 78 fL (80-100); MONOCYTES # (AUTO) 0.3 K/uL (0.1-1.0); MONOCYTES % (AUTO) 6.5 % (2.0-9.0); PLATELET COUNT (AUTO) 167 K/uL (150-450); RED BLOOD CELL COUNT(AUTO) 5.18 MIL/uL (4.00-5.20); RED CELL DISTRIBUTION WIDTH 18.5 % (11.5-14.5)
[2021-08-06 13:25] LABS: ALBUMIN 3.5 g/dL (3.4-5.0); BILIRUBIN,TOTAL 0.6 mg/dL (0.1-1.0); C-REACTIVE PROTEIN QUANT 0.11 mg/dL (0.00-0.30); CALCIUM, TOTAL 9.1 mg/dL (8.8-10.5); CREATININE 2.48 mg/dL (0.60-1.30); POTASSIUM 4.5 mmol/L (3.5-5.1); TOTAL PROTEIN, SERUM 7.2 g/dL (6.4-8.2)
[2021-08-06 14:13] LABS: ERYTHROCYTE SEDIMENTATION RATE 2 MM/HR (0-20)
[2021-08-06 17:21] LABS: COVID AG,FIA SOURCE NASOPHARYNGEAL
[2021-08-06 17:22] LABS: INR 1.1 (0.9-1.1); PROTHROMBIN TIME 11.9 SEC (9.4-11.6)
[2021-08-06] MEDS ORDERED: CefTRIAXone 1 GM/DEXTROSE 50 ML IV ONE (18:15)
[2021-08-06] MEDS: FUROSEMIDE 40 MG/4 ML VIAL IVP SCH (19:44)
[2021-08-06] MEDS ORDERED: DEXTROSE 50%-WATER 25 GM/50 ML SYRINGE IVP PRN (20:15)
[2021-08-06] MEDS: INSULIN GLARGINE,HUM.REC.ANLOG 100 UNITS/ML SQ SCH ×3 (20:19→21:59)
[2021-08-06] MEDS ORDERED: PIPERACILLIN/TAZO 3.375 GM/D5W 50 ML IV ONE (20:30)
[2021-08-06 20:31] LABS: GLUCOSE,POINT OF CARE 122 MG/DL (70-110)
[2021-08-06] MEDS: APIXABAN 2.5 MG TABLET PO SCH (21:30)
[2021-08-06] MEDS ORDERED: ACETAMINOPHEN 325 MG TABLET PO PRN (21:30)
[2021-08-06] MEDS ORDERED: ONDANSETRON HCL 4 MG/2 ML VIAL IVP PRN (21:30)
[2021-08-06] MEDS: AMIODARONE HCL 200 MG TABLET PO SCH (21:30)
[2021-08-06] MEDS: HEPARIN SODIUM,PORCINE 5,000 UNITS/ML VIAL SQ SCH ×2 (23:21→23:25)
[2021-08-06 23:25] VITALS: BP 134/76
[2021-08-06] MEDS ORDERED: ATOR20TA65 PO (23:43)
[2021-08-06] MEDS ORDERED: METF-1211 PO (23:49)
[2021-08-07] VITALS (7 sets, daily range): BP systolic 118–140; BP diastolic 66–98
[2021-08-07 01:31] LABS: GLUCOMETER DEV NAME(LOC) 5N.1C; GLUCOSE,POINT OF CARE 130 MG/DL (70-110)
[2021-08-07 02:19] LABS: CREATININE,URINE RANDOM 26.8 mg/dL (30.0-125.0); SODIUM,URINE RANDOM 102 mmol/l (20-110)
[2021-08-07 02:21] LABS: APPEARANCE,URINE CLEAR (CLEAR); BILIRUBIN,URINE NEGATIVE (NEGATIVE); GLUCOSE, URINE (UA) NEGATIVE (NEGATIVE); KETONES,URINE NEGATIVE (NEGATIVE); LEUKOCYTE ESTERASE ,URINE NEGATIVE (NEGATIVE); NITRATE,URINE NEGATIVE (NEGATIVE); OCCULT BLOOD,URINE NEGATIVE (NEGATIVE); PH,URINE 5.5 (5.0-8.0); PROTEIN,URINE NEGATIVE (NEGATIVE); UROBILINOGEN,URINE 0.2 mg/dL (<=1.0)
[2021-08-07] MEDS: DOXYCYCLINE HYCLATE 100 MG TABLET PO SCH ×2 (04:45→08:14)
[2021-08-07] MEDS ORDERED: SODIUM CHLORIDE 0.9% 250 ML IV ONE (05:18)
[2021-08-07] MEDS: PIPERACILLIN SODIUM/TAZOBACTAM 2.25 GM in DEXTROSE 5%-WATER 50 ML IV SCH ×3 (05:22→21:46)
[2021-08-07 06:36] LABS: GLUCOMETER DEV NAME(LOC) 5N.1C; GLUCOSE,POINT OF CARE 114 MG/DL (70-110)
[2021-08-07 07:21] LABS: BASOPHILS % (AUTO) 0.8 % (0.0-2.0); HEMATOCRIT 39.8 % (36-46); HEMOGLOBIN 12.8 g/dL (12.0-16.0); LYMPHOCYTES # (AUTO) 1.2 K/uL (1.0-4.8); LYMPHOCYTES % (AUTO) 21.2 % (22.0-44.0); MEAN CORPUSCULAR HEMOGLOBIN 24.9 pg (26.0-34.0); MEAN CORPUSCULAR HGB CONC 32.3 G/dL (31.0-37.0); MEAN CORPUSCULAR VOLUME 77 fL (80-100); MONOCYTES # (AUTO) 0.5 K/uL (0.1-1.0); MONOCYTES % (AUTO) 8.5 % (2.0-9.0); NEUTROPHILS % (AUTO) 68.5 % (40.0-70.0); PLATELET COUNT (AUTO) 158 K/uL (150-450); RED BLOOD CELL COUNT(AUTO) 5.15 MIL/uL (4.00-5.20); RED CELL DISTRIBUTION WIDTH 18.7 % (11.5-14.5)
[2021-08-07 07:33] LABS: CALCIUM, TOTAL 9.3 mg/dL (8.8-10.5); CREATININE 2.11 mg/dL (0.60-1.30); MAGNESIUM 1.8 mg/dL (1.80-2.40); PHOSPHORUS 4.3 mg/dL (2.5-4.9); POTASSIUM 4.1 mmol/L (3.5-5.1)
[2021-08-07] MEDS: HEPARIN SODIUM,PORCINE 5,000 UNITS/ML VIAL SQ SCH (07:56)
[2021-08-07] MEDS: FUROSEMIDE 40 MG/4 ML VIAL IVP SCH (08:14)
[2021-08-07] MEDS: AMIODARONE HCL 200 MG TABLET PO SCH ×2 (08:14→21:41)
[2021-08-07] MEDS: METOPROLOL SUCCINATE 50 MG ER TABLET PO SCH (08:14)
[2021-08-07] MEDS: APIXABAN 2.5 MG TABLET PO SCH ×2 (08:14→21:00)
[2021-08-07] MEDS ORDERED: FUROSEMIDE 40 MG TABLET PO SCH (09:00)
[2021-08-07] MEDS ORDERED: FUROSEMIDE 40 MG/4 ML VIAL IVP SCH (09:00)
[2021-08-07] MEDS ORDERED: ASPIRIN 81 MG CHEWABLE TABLET PO SCH (09:00)
[2021-08-07] MEDS: INSULIN LISPRO 100 UNITS/ML SQ PRN ×2 (12:21→17:41)
[2021-08-07 14:11] LABS: GLUCOMETER DEV NAME(LOC) 5S.2B; GLUCOSE,POINT OF CARE 197 MG/DL (70-110)
[2021-08-07] MEDS: DAPTOMYCIN 400 MG in SODIUM CHLORIDE 0.9% 50 ML IV SCH (15:29)
[2021-08-07 17:57] LABS: GLUCOMETER DEV NAME(LOC) 5N.1C; GLUCOSE,POINT OF CARE 159 MG/DL (70-110)
[2021-08-07 18:10] LABS: BASOPHILS % (AUTO) 0.7 % (0.0-2.0); EOSINOPHILS % (AUTO) 1.2 % (1.0-6.0); HEMATOCRIT 41.7 % (36-46); HEMOGLOBIN 13.3 g/dL (12.0-16.0); LYMPHOCYTES # (AUTO) 1.2 K/uL (1.0-4.8); LYMPHOCYTES % (AUTO) 18.7 % (22.0-44.0); MEAN CORPUSCULAR HEMOGLOBIN 24.9 pg (26.0-34.0); MEAN CORPUSCULAR VOLUME 78 fL (80-100); MONOCYTES # (AUTO) 0.4 K/uL (0.1-1.0); MONOCYTES % (AUTO) 6.7 % (2.0-9.0); NEUTROPHILS # (AUTO) 4.7 K/uL (1.8-7.7); NEUTROPHILS % (AUTO) 72.7 % (40.0-70.0); PLATELET COUNT (AUTO) 181 K/uL (150-450); RED BLOOD CELL COUNT(AUTO) 5.36 MIL/uL (4.00-5.20); RED CELL DISTRIBUTION WIDTH 18.5 % (11.5-14.5)
[2021-08-07 18:23] LABS: INR 1.1 (0.9-1.1); PROTHROMBIN TIME 11.9 SEC (9.4-11.6)
[2021-08-07] MEDS: INSULIN GLARGINE,HUM.REC.ANLOG 100 UNITS/ML SQ SCH (21:44)
[2021-08-08 05:35] VITALS: BP 129/99
[2021-08-08] MEDS: PIPERACILLIN SODIUM/TAZOBACTAM 2.25 GM in DEXTROSE 5%-WATER 50 ML IV SCH ×3 (06:25→22:10)
[2021-08-08 06:31] LABS: GLUCOMETER DEV NAME(LOC) 5N.1C; GLUCOSE,POINT OF CARE 136 MG/DL (70-110)
[2021-08-08 06:31] LABS: GLUCOMETER DEV NAME(LOC) 5N.1C; GLUCOSE,POINT OF CARE 132 MG/DL (70-110)
[2021-08-08] MEDS: FUROSEMIDE 40 MG/4 ML VIAL IVP SCH (08:28)
[2021-08-08] MEDS: AMIODARONE HCL 200 MG TABLET PO SCH ×2 (08:28→22:06)
[2021-08-08] MEDS: APIXABAN 2.5 MG TABLET PO SCH ×2 (08:28→21:00)
[2021-08-08] MEDS: METOPROLOL SUCCINATE 50 MG ER TABLET PO SCH (08:28)
[2021-08-08 08:38] VITALS: BP 127/79
[2021-08-08 11:36] VITALS: BP 110/77
[2021-08-08] MEDS: INSULIN LISPRO 100 UNITS/ML SQ PRN ×3 (11:42→22:08)
[2021-08-08 15:31] VITALS: BP 108/65
[2021-08-08 18:46] LABS: CALCIUM, TOTAL 9.4 mg/dL (8.8-10.5); CREATININE 2.32 mg/dL (0.60-1.30); MAGNESIUM 2.2 mg/dL (1.80-2.40); PHOSPHORUS 4.9 mg/dL (2.5-4.9); POTASSIUM 4.5 mmol/L (3.5-5.1)
[2021-08-08 18:58] LABS: C-REACTIVE PROTEIN QUANT 0.25 mg/dL (0.00-0.30)
[2021-08-08 20:00] VITALS: BP 140/68
[2021-08-08 20:51] LABS: GLUCOMETER DEV NAME(LOC) 5N.1C; GLUCOSE,POINT OF CARE 199 MG/DL (70-110)
[2021-08-08 20:51] LABS: GLUCOMETER DEV NAME(LOC) 5N.1C; GLUCOSE,POINT OF CARE 188 MG/DL (70-110)
[2021-08-08 22:01] LABS: COLLECTION TIME,URINE 24 HR; TPROTEIN TIMED,URINE 26 mg/dL; TPROTEIN URINE, 24HRS COLL 156 mg/24Hr (0-165)
[2021-08-08] MEDS: INSULIN GLARGINE,HUM.REC.ANLOG 100 UNITS/ML SQ SCH (22:07)
[2021-08-08 23:59] VITALS: BP 135/87
[2021-08-09 04:51] VITALS: BP 157/83
[2021-08-09] MEDS: PIPERACILLIN SODIUM/TAZOBACTAM 2.25 GM in DEXTROSE 5%-WATER 50 ML IV SCH ×3 (05:56→22:12)
[2021-08-09] MEDS: FUROSEMIDE 40 MG/4 ML VIAL IVP SCH (08:02)
[2021-08-09] MEDS: METOPROLOL SUCCINATE 50 MG ER TABLET PO SCH (08:02)
[2021-08-09] MEDS: AMIODARONE HCL 200 MG TABLET PO SCH ×2 (08:02→22:09)
[2021-08-09 08:03] VITALS: BP 144/97
[2021-08-09] MEDS: APIXABAN 2.5 MG TABLET PO SCH ×2 (09:00→21:00)
[2021-08-09 11:16] LABS: GLUCOMETER DEV NAME(LOC) 5N.1C; GLUCOSE,POINT OF CARE 88 MG/DL (70-110)
[2021-08-09] MEDS: INSULIN LISPRO 100 UNITS/ML SQ PRN ×3 (11:25→22:12)
[2021-08-09 11:51] LABS: GLUCOMETER DEV NAME(LOC) 5S.2B; GLUCOSE,POINT OF CARE 194 MG/DL (70-110)
[2021-08-09 12:00] VITALS: BP 119/72
[2021-08-09 16:28] VITALS: BP 140/82
[2021-08-09] MEDS: DAPTOMYCIN 400 MG in SODIUM CHLORIDE 0.9% 50 ML IV SCH (17:01)
[2021-08-09 17:51] LABS: GLUCOMETER DEV NAME(LOC) 5N.3; GLUCOSE,POINT OF CARE 168 MG/DL (70-110)
[2021-08-09 21:12] LABS: GLUCOMETER DEV NAME(LOC) 5S.1; GLUCOSE,POINT OF CARE 171 MG/DL (70-110)
[2021-08-09] MEDS: INSULIN GLARGINE,HUM.REC.ANLOG 100 UNITS/ML SQ SCH (22:11)
[2021-08-09 23:28] VITALS: BP 141/94
[2021-08-10 04:21] VITALS: BP 147/93
[2021-08-10] MEDS: PIPERACILLIN SODIUM/TAZOBACTAM 2.25 GM in DEXTROSE 5%-WATER 50 ML IV SCH ×2 (05:47→15:20)
[2021-08-10 07:23] VITALS: BP 127/76
[2021-08-10 07:47] LABS: BASOPHILS % (AUTO) 0.5 % (0.0-2.0); EOSINOPHILS % (AUTO) 0.9 % (1.0-6.0); HEMATOCRIT 38.2 % (36-46); HEMOGLOBIN 12.3 g/dL (12.0-16.0); LYMPHOCYTES # (AUTO) 1.5 K/uL (1.0-4.8); LYMPHOCYTES % (AUTO) 21.5 % (22.0-44.0); MEAN CORPUSCULAR HEMOGLOBIN 24.8 pg (26.0-34.0); MEAN CORPUSCULAR HGB CONC 32.2 G/dL (31.0-37.0); MEAN CORPUSCULAR VOLUME 77 fL (80-100); MONOCYTES # (AUTO) 0.6 K/uL (0.1-1.0); MONOCYTES % (AUTO) 8.2 % (2.0-9.0); NEUTROPHILS # (AUTO) 4.7 K/uL (1.8-7.7); NEUTROPHILS % (AUTO) 68.9 % (40.0-70.0); PLATELET COUNT (AUTO) 181 K/uL (150-450); RED BLOOD CELL COUNT(AUTO) 4.96 MIL/uL (4.00-5.20); RED CELL DISTRIBUTION WIDTH 18.2 % (11.5-14.5)
[2021-08-10 08:00] LABS: CALCIUM, TOTAL 9.2 mg/dL (8.8-10.5); CREATININE 2.11 mg/dL (0.60-1.30); MAGNESIUM 2.1 mg/dL (1.80-2.40); PHOSPHORUS 4.7 mg/dL (2.5-4.9); POTASSIUM 3.9 mmol/L (3.5-5.1)
[2021-08-10] MEDS: METOPROLOL SUCCINATE 50 MG ER TABLET PO SCH (08:17)
[2021-08-10] MEDS: FUROSEMIDE 40 MG TABLET PO SCH (08:17)
[2021-08-10] MEDS: AMIODARONE HCL 200 MG TABLET PO SCH ×2 (08:17→21:45)
[2021-08-10] MEDS: APIXABAN 2.5 MG TABLET PO SCH (09:00)
[2021-08-10 11:11] VITALS: BP 114/69
[2021-08-10] MEDS: INSULIN LISPRO 100 UNITS/ML SQ PRN ×2 (11:59→21:50)
[2021-08-10 12:42] LABS: GLUCOMETER DEV NAME(LOC) 5S.1; GLUCOSE,POINT OF CARE 250 MG/DL (70-110)
[2021-08-10 12:42] LABS: GLUCOMETER DEV NAME(LOC) 5S.1; GLUCOSE,POINT OF CARE 176 MG/DL (70-110)
[2021-08-10 12:42] LABS: GLUCOMETER DEV NAME(LOC) 5S.1; GLUCOSE,POINT OF CARE 225 MG/DL (70-110)
[2021-08-10] MEDS ORDERED: OXYMETAZOLINE HCL 0.05% 15 ML NASAL SPRAY NASAL PRN (13:45)
[2021-08-10 14:59] LABS: SODIUM TIMED,URINE 36 mmol/L (20-110); TPROTEIN TIMED,URINE 43 mg/dL
[2021-08-10 15:17] LABS: COLLECTION TIME,URINE 24 HR; SODIUM URINE, 24HR CALC 18 mmol/24H (40-220); TPROTEIN URINE, 24HRS COLL 215 mg/24Hr (0-165)
[2021-08-10 15:45] VITALS: BP 106/73
[2021-08-10 18:12] LABS: GLUCOMETER DEV NAME(LOC) 5S.1; GLUCOSE,POINT OF CARE 140 MG/DL (70-110)
[2021-08-10 19:34] VITALS: BP 141/81
[2021-08-10 20:56] LABS: GLUCOMETER DEV NAME(LOC) 5N.1C; GLUCOSE,POINT OF CARE 218 MG/DL (70-110)
[2021-08-10] MEDS: CEFEPIME HCL 1 GM in DEXTROSE 5%-WATER 50 ML IV SCH (21:45)
[2021-08-10] MEDS: INSULIN GLARGINE,HUM.REC.ANLOG 100 UNITS/ML SQ SCH (21:49)
[2021-08-10 23:18] VITALS: BP 138/92
[2021-08-11 04:00] VITALS: BP 119/71
[2021-08-11 07:02] LABS: GLUCOMETER DEV NAME(LOC) 5N.1C; GLUCOSE,POINT OF CARE 94 MG/DL (70-110)
[2021-08-11 07:28] VITALS: BP 130/82
[2021-08-11] MEDS: METOPROLOL SUCCINATE 50 MG ER TABLET PO SCH (07:52)
[2021-08-11] MEDS: AMIODARONE HCL 200 MG TABLET PO SCH ×2 (07:52→22:01)
[2021-08-11] MEDS: FUROSEMIDE 40 MG TABLET PO SCH (07:52)
[2021-08-11] MEDS: CEFEPIME HCL 1 GM in DEXTROSE 5%-WATER 50 ML IV SCH ×2 (07:53→20:50)
[2021-08-11] MEDS: INSULIN LISPRO 100 UNITS/ML SQ PRN ×3 (11:07→20:50)
[2021-08-11 11:14] VITALS: BP 127/71
[2021-08-11 15:35] VITALS: BP 133/87
[2021-08-11] MEDS: DAPTOMYCIN 400 MG in SODIUM CHLORIDE 0.9% 50 ML IV SCH (15:36)
[2021-08-11 20:15] VITALS: BP 123/88
[2021-08-11] MEDS: INSULIN GLARGINE,HUM.REC.ANLOG 100 UNITS/ML SQ SCH (20:48)
[2021-08-12 00:08] VITALS: BP 137/82
[2021-08-12 04:55] VITALS: BP 110/69
[2021-08-12 05:46] LABS: GLUCOMETER DEV NAME(LOC) 5N.3; GLUCOSE,POINT OF CARE 66 MG/DL (70-110)
[2021-08-12] MEDS: METOPROLOL SUCCINATE 50 MG ER TABLET PO SCH (08:08)
[2021-08-12] MEDS: AMIODARONE HCL 200 MG TABLET PO SCH (08:09)
[2021-08-12] MEDS: FUROSEMIDE 40 MG TABLET PO SCH (08:09)
[2021-08-12] MEDS: CEFEPIME HCL 1 GM in DEXTROSE 5%-WATER 50 ML IV SCH (08:09)
[2021-08-12 08:12] VITALS: BP 136/73
[2021-08-12 08:22] LABS: GLUCOMETER DEV NAME(LOC) 5N.1C; GLUCOSE,POINT OF CARE 223 MG/DL (70-110)
[2021-08-12 08:22] LABS: GLUCOMETER DEV NAME(LOC) 5S.1; GLUCOSE,POINT OF CARE 164 MG/DL (70-110)
[2021-08-12 08:22] LABS: GLUCOMETER DEV NAME(LOC) 5S.1; GLUCOSE,POINT OF CARE 197 MG/DL (70-110)
[2021-08-12 08:22] LABS: GLUCOMETER DEV NAME(LOC) 5N.1C; GLUCOSE,POINT OF CARE 93 MG/DL (70-110)
[2021-08-12] MEDS ORDERED: SITA50 PO (11:21)
[2021-08-12] MEDS: INSULIN LISPRO 100 UNITS/ML SQ PRN ×2 (11:48→17:55)
[2021-08-12 11:51] VITALS: BP 138/73
[2021-08-12 13:31] LABS: GLUCOMETER DEV NAME(LOC) 5S.2B; GLUCOSE,POINT OF CARE 150 MG/DL (70-110)
[2021-08-12 16:13] VITALS: BP 140/71
[2021-08-13 00:37] LABS: GLUCOMETER DEV NAME(LOC) 5S.1; GLUCOSE,POINT OF CARE 211 MG/DL (70-110)
== END 2021-08-12 19:23 | disposition home health service (06) | DRG 602 ==
LOC: EMS 12:40 → 5S 22:00
PROVIDERS: ADMIT Internal Medicine; ATTEND Internal Medicine
PROC: 2Y41X5Z Packing of Nasal Region using Packing Material (ICD-10-PCS; principal; 2021-08-09)
DX: L03.115 Cellulitis of right lower limb (principal); I50.23 Acute on chronic systolic (congestive) heart failure; N17.0 Acute kidney failure with tubular necrosis; N39.0 Urinary tract infection, site not specified; I13.0 Hypertensive heart and chronic kidney disease with heart failure and stage 1 through stage 4 chronic kidney disease, or unspecified chronic kidney disease; I42.9 Cardiomyopathy, unspecified; E87.0 Hyperosmolality and hypernatremia; Z20.822 Contact with and (suspected) exposure to COVID-19; E11.22 Type 2 diabetes mellitus with diabetic chronic kidney disease; R04.0 Epistaxis; E11.621 Type 2 diabetes mellitus with foot ulcer; L97.519 Non-pressure chronic ulcer of other part of right foot with unspecified severity; E11.65 Type 2 diabetes mellitus with hyperglycemia; X58.XXXA Exposure to other specified factors, initial encounter; B95.2 Enterococcus as the cause of diseases classified elsewhere; B95.1 Streptococcus, group B, as the cause of diseases classified elsewhere; E78.5 Hyperlipidemia, unspecified; I48.0 Paroxysmal atrial fibrillation; N18.30 Chronic kidney disease, stage 3 unspecified; S90.821A Blister (nonthermal), right foot, initial encounter; Z79.01 Long term (current) use of anticoagulants; Z79.82 Long term (current) use of aspirin; Z79.899 Other long term (current) drug therapy; Z82.49 Family history of ischemic heart disease and other diseases of the circulatory system; Z83.3 Family history of diabetes mellitus; Z90.710 Acquired absence of both cervix and uterus; Z79.84 Long term (current) use of oral hypoglycemic drugs; Y93.89 Activity, other specified; Y92.89 Other specified places as the place of occurrence of the external cause; Y99.8 Other external cause status
CPT/HCPCS: 71045; 80048; 80053; 81003; 81050; 82570; 82962; 83036; 83735; 83880; 84100; 84156; 84300; 84484; 85025; 85610; 85651; 85730; 86140; 87070; 93970; 99285; J0692; J0878; J1644; J1815; J1940; J2543; J7050; J7060; 36415-L1; 36415-TC

== ENCOUNTER 2021-08-26 15:48 | Inpatient (IN) | payer MEDICARE ==
[~2021-08-26] VITALS: Ht 147.3 cm; Wt 63.3 kg
[~2021-08-26 15:48] MED LIST changes: +ATOR20TA65 PO; -CIPR250T6 PO; -LOSA-370 PO; +SITA50 PO
[2021-08-26 19:23] LABS: BASOPHILS % (AUTO) 0.2 % (0.0-2.0); EOSINOPHILS % (AUTO) 0.2 % (1.0-6.0); HEMATOCRIT 37.8 % (36-46); HEMOGLOBIN 11.7 g/dL (12.0-16.0); LYMPHOCYTES # (AUTO) 0.6 K/uL (1.0-4.8); LYMPHOCYTES % (AUTO) 8.7 % (22.0-44.0); MEAN CORPUSCULAR HEMOGLOBIN 23.8 pg (26.0-34.0); MEAN CORPUSCULAR HGB CONC 31.1 G/dL (31.0-37.0); MEAN CORPUSCULAR VOLUME 77 fL (80-100); MONOCYTES # (AUTO) 0.4 K/uL (0.1-1.0); MONOCYTES % (AUTO) 4.8 % (2.0-9.0); NEUTROPHILS # (AUTO) 6.4 K/uL (1.8-7.7); PLATELET COUNT (AUTO) 174 K/uL (150-450); RED BLOOD CELL COUNT(AUTO) 4.94 MIL/uL (4.00-5.20); RED CELL DISTRIBUTION WIDTH 19.6 % (11.5-14.5)
[2021-08-26 19:26] LABS: NEUTROPHILS % (AUTO) 86.1 % (40.0-70.0)
[2021-08-26 19:26] LABS: COVID AG,FIA SOURCE NASOPHARYNGEAL
[2021-08-26 19:31] LABS: CALCIUM, TOTAL 9.4 mg/dL (8.8-10.5); CREATININE 3.72 mg/dL (0.60-1.30); POTASSIUM 4.5 mmol/L (3.5-5.1)
[2021-08-26 19:37] LABS: INR 1.2 (0.9-1.1); PROTHROMBIN TIME 12.3 SEC (9.4-11.6)
[2021-08-26 19:38] LABS: AMMONIA 20 umol/L (11-32)
[2021-08-26 19:42] LABS: PLATELET MORPHOLOGY COMMENT LARGE PLTS PRESENT
[2021-08-26 19:55] LABS: ALBUMIN 3.5 g/dL (3.4-5.0); BILIRUBIN,TOTAL 0.7 mg/dL (0.1-1.0); MAGNESIUM 3.3 mg/dL (1.80-2.40); PHOSPHORUS 6.5 mg/dL (2.5-4.9); TOTAL PROTEIN, SERUM 7.4 g/dL (6.4-8.2)
[2021-08-26] MEDS ORDERED: FUROSEMIDE 20 MG/2 ML VIAL IVP ONE (20:00)
[2021-08-26 20:13] LABS: APPEARANCE,URINE CLEAR (CLEAR); BILIRUBIN,URINE NEGATIVE (NEGATIVE); GLUCOSE, URINE (UA) NEGATIVE (NEGATIVE); KETONES,URINE NEGATIVE (NEGATIVE); LEUKOCYTE ESTERASE ,URINE NEGATIVE (NEGATIVE); NITRATE,URINE NEGATIVE (NEGATIVE); OCCULT BLOOD,URINE MODERATE (NEGATIVE); PROTEIN,URINE NEGATIVE (NEGATIVE); UROBILINOGEN,URINE 0.2 mg/dL (<=1.0)
[2021-08-26 20:22] LABS: BACTERIA,URINE None Seen /HPF (None Seen); SQUAMOUS EPITHELIAL CELL,UR Few /LPF (None Seen); WBC,URINE 0-2 /HPF (0-5)
[2021-08-26] MEDS ORDERED: PIPERACILLIN/TAZO 3.375 GM/D5W 50 ML IV ONE (21:15)
[2021-08-26] MEDS ORDERED: AZITHROMYCIN 500 MG/NS 250 ML IV ONE (21:15)
[2021-08-26] MEDS ORDERED: VANCOMYCIN HCL 1 GM/D5% WATER 200 ML IV ONE (21:15)
[2021-08-27] MEDS ORDERED: ACETAMINOPHEN 325 MG TABLET PO PRN ×2 (00:30→12:45)
[2021-08-27] MEDS ORDERED: ONDANSETRON HCL 4 MG/2 ML VIAL IVP PRN ×2 (00:30→12:45)
[2021-08-27] MEDS ORDERED: 0.9% SODIUM CHLORIDE 10 ML SYRINGE IVP PRN (00:30)
[2021-08-27 05:15] VITALS: BP 137/68
[2021-08-27 07:38] VITALS: BP 119/76
[2021-08-27 10:36] VITALS: BP 101/70
[2021-08-27] MEDS ORDERED: MAGNESIUM HYDROXIDE SUSPENSION 30 ML UDCUP PO PRN (12:45)
[2021-08-27] MEDS ORDERED: ZOLPIDEM TARTRATE 5 MG TABLET PO PRN (12:45)
[2021-08-27] MEDS ORDERED: BISACODYL 10 MG RECTAL RECTAL SUPPOSITORY PR PRN (12:45)
[2021-08-27] MEDS ORDERED: MORPHINE SULFATE 2 MG/ML SYRINGE IVP PRN (12:45)
[2021-08-27] MEDS ORDERED: *CLINICAL-LEVOFLOXACIN IVPB DOSING CLINICAL ONE (13:00)
[2021-08-27 15:59] VITALS: BP 109/65
[2021-08-27] MEDS ORDERED: LEVOFLOXACIN 750 MG/D5% WATER 150 ML IV ONE (18:00)
[2021-08-27 19:52] VITALS: BP 108/58
[2021-08-27] MEDS: FUROSEMIDE 40 MG/4 ML VIAL IVP SCH (20:09)
[2021-08-27] MEDS: APIXABAN 2.5 MG TABLET PO SCH (20:10)
[2021-08-27] MEDS: FUROSEMIDE 20 MG/2 ML VIAL IVP SCH (20:10)
[2021-08-27] MEDS: DOCUSATE SODIUM 100 MG CAPSULE PO SCH (20:11)
[2021-08-27 23:16] VITALS: BP 101/44
[2021-08-28 04:41] VITALS: BP 108/65
[2021-08-28 08:12] VITALS: BP 119/70
[2021-08-28 08:52] LABS: BASOPHILS % (AUTO) 0.2 % (0.0-2.0); EOSINOPHILS % (AUTO) 0 % (1.0-6.0); HEMOGLOBIN 11.1 g/dL (12.0-16.0); LYMPHOCYTES # (AUTO) 0.4 K/uL (1.0-4.8); LYMPHOCYTES % (AUTO) 4.4 % (22.0-44.0); MEAN CORPUSCULAR HEMOGLOBIN 24.1 pg (26.0-34.0); MEAN CORPUSCULAR HGB CONC 31.6 G/dL (31.0-37.0); MEAN CORPUSCULAR VOLUME 76 fL (80-100); MONOCYTES # (AUTO) 0.5 K/uL (0.1-1.0); MONOCYTES % (AUTO) 5.1 % (2.0-9.0); NEUTROPHILS # (AUTO) 8.9 K/uL (1.8-7.7); PLATELET COUNT (AUTO) 122 K/uL (150-450); RED BLOOD CELL COUNT(AUTO) 4.59 MIL/uL (4.00-5.20); RED CELL DISTRIBUTION WIDTH 19.5 % (11.5-14.5)
[2021-08-28 08:53] LABS: NEUTROPHILS % (AUTO) 90.3 % (40.0-70.0)
[2021-08-28] MEDS: FUROSEMIDE 20 MG/2 ML VIAL IVP SCH (09:00)
[2021-08-28 09:15] LABS: ALBUMIN 3.1 g/dL (3.4-5.0); CALCIUM, TOTAL 9.6 mg/dL (8.8-10.5); CREATININE 4.24 mg/dL (0.60-1.30); POTASSIUM 5.3 mmol/L (3.5-5.1); TOTAL PROTEIN, SERUM 6.9 g/dL (6.4-8.2)
[2021-08-28] MEDS: FUROSEMIDE 40 MG/4 ML VIAL IVP SCH ×2 (09:17→20:43)
[2021-08-28] MEDS: DOCUSATE SODIUM 100 MG CAPSULE PO SCH ×2 (09:18→20:43)
[2021-08-28] MEDS: SitaGLIPtin PHOSPHATE 50 MG TABLET PO SCH (09:18)
[2021-08-28] MEDS: APIXABAN 2.5 MG TABLET PO SCH ×2 (09:18→20:43)
[2021-08-28] MEDS: ASPIRIN 81 MG CHEWABLE TABLET PO SCH (09:18)
[2021-08-28] MEDS: METOPROLOL SUCCINATE 50 MG ER TABLET PO SCH (09:18)
[2021-08-28] MEDS: PANTOPRAZOLE SODIUM 40 MG DR TABLET PO SCH (09:44)
[2021-08-28] MEDS: HYDROCODONE/ACETAMINOPHEN 5-325 MG TABLET PO PRN (09:44)
[2021-08-28] MEDS: ATORVASTATIN CALCIUM 20 MG TABLET PO SCH (09:44)
[2021-08-28 11:15] VITALS: BP 125/71
[2021-08-28 15:50] VITALS: BP 96/53
[2021-08-28 19:20] VITALS: BP 93/52
[2021-08-29 00:15] VITALS: BP 90/61
[2021-08-29 04:30] VITALS: BP 90/51
[2021-08-29 07:09] VITALS: BP 114/69
[2021-08-29 07:30] LABS: EOSINOPHILS % (AUTO) 0 % (1.0-6.0); HEMATOCRIT 34.7 % (36-46); HEMOGLOBIN 10.7 g/dL (12.0-16.0); LYMPHOCYTES # (AUTO) 0.5 K/uL (1.0-4.8); LYMPHOCYTES % (AUTO) 4.9 % (22.0-44.0); MEAN CORPUSCULAR HEMOGLOBIN 23.6 pg (26.0-34.0); MEAN CORPUSCULAR VOLUME 76 fL (80-100); MONOCYTES # (AUTO) 0.5 K/uL (0.1-1.0); MONOCYTES % (AUTO) 4.9 % (2.0-9.0); NEUTROPHILS # (AUTO) 8.7 K/uL (1.8-7.7); PLATELET COUNT (AUTO) 100 K/uL (150-450); RED BLOOD CELL COUNT(AUTO) 4.55 MIL/uL (4.00-5.20); RED CELL DISTRIBUTION WIDTH 19.5 % (11.5-14.5)
[2021-08-29 07:55] LABS: NEUTROPHILS % (AUTO) 90.2 % (40.0-70.0)
[2021-08-29 08:07] LABS: ALBUMIN 2.9 g/dL (3.4-5.0); BILIRUBIN,TOTAL 0.8 mg/dL (0.1-1.0); CALCIUM, TOTAL 9.6 mg/dL (8.8-10.5); CREATININE 4.63 mg/dL (0.60-1.30); MAGNESIUM 3.4 mg/dL (1.80-2.40); PHOSPHORUS 7.9 mg/dL (2.5-4.9); POTASSIUM 5.6 mmol/L (3.5-5.1); TOTAL PROTEIN, SERUM 6.7 g/dL (6.4-8.2)
[2021-08-29] MEDS: APIXABAN 2.5 MG TABLET PO SCH ×2 (09:07→20:55)
[2021-08-29] MEDS: DOCUSATE SODIUM 100 MG CAPSULE PO SCH ×2 (09:07→20:55)
[2021-08-29] MEDS: ASPIRIN 81 MG CHEWABLE TABLET PO SCH (09:07)
[2021-08-29] MEDS: PANTOPRAZOLE SODIUM 40 MG DR TABLET PO SCH (09:08)
[2021-08-29] MEDS: ATORVASTATIN CALCIUM 20 MG TABLET PO SCH (09:08)
[2021-08-29] MEDS: HYDROCODONE/ACETAMINOPHEN 5-325 MG TABLET PO PRN (09:08)
[2021-08-29] MEDS: METOPROLOL SUCCINATE 50 MG ER TABLET PO SCH (09:08)
[2021-08-29] MEDS: FUROSEMIDE 40 MG/4 ML VIAL IVP SCH ×2 (09:09→21:05)
[2021-08-29] MEDS: SitaGLIPtin PHOSPHATE 50 MG TABLET PO SCH (09:09)
[2021-08-29 12:14] VITALS: BP 117/60
[2021-08-29 15:19] VITALS: BP 98/57
[2021-08-29] MEDS ORDERED: SODIUM CHLORIDE 0.9% 2,000 ML ONE (17:21)
[2021-08-29] MEDS ORDERED: LEVOFLOXACIN 500 MG/D5% WATER 100 ML IV SCH (18:00)
[2021-08-29] MEDS ORDERED: DOPamine 400MG/D5W[STANDARD] 250 ML IV SCH (18:15)
[2021-08-29 20:56] VITALS: BP 102/49
[2021-08-30] VITALS (9 sets, daily range): BP systolic 30–145; BP diastolic 5–88
[2021-08-30] MEDS: APIXABAN 2.5 MG TABLET PO SCH (08:10)
[2021-08-30] MEDS: ASPIRIN 81 MG CHEWABLE TABLET PO SCH (09:00)
[2021-08-30] MEDS: PANTOPRAZOLE SODIUM 40 MG DR TABLET PO SCH (09:04)
[2021-08-30] MEDS: DOCUSATE SODIUM 100 MG CAPSULE PO SCH (09:04)
[2021-08-30] MEDS: ATORVASTATIN CALCIUM 20 MG TABLET PO SCH (09:05)
[2021-08-30] MEDS: SitaGLIPtin PHOSPHATE 50 MG TABLET PO SCH (09:05)
[2021-08-30] MEDS: FUROSEMIDE 40 MG/4 ML VIAL IVP SCH (09:16)
[2021-08-30] MEDS ORDERED: SODIUM CHLORIDE 0.9% 2,000 ML ONE (11:05)
[2021-08-30] MEDS ORDERED: HEPARIN SODIUM,PORCINE 1,000 UNITS/ML VIAL IVP ONE (12:00)
[2021-08-30 12:11] LABS: HEMATOCRIT 31.7 % (36-46); HEMOGLOBIN 9.7 g/dL (12.0-16.0); MEAN CORPUSCULAR HEMOGLOBIN 23.9 pg (26.0-34.0); MEAN CORPUSCULAR HGB CONC 30.5 G/dL (31.0-37.0); MEAN CORPUSCULAR VOLUME 78 fL (80-100); PLATELET COUNT (AUTO) 112 K/uL (150-450); RED BLOOD CELL COUNT(AUTO) 4.06 MIL/uL (4.00-5.20); RED CELL DISTRIBUTION WIDTH 20.9 % (11.5-14.5)
[2021-08-30 12:27] LABS: INR 1.5 (0.9-1.1); PROTHROMBIN TIME 15.1 SEC (9.4-11.6)
[2021-08-30 12:34] LABS: ALBUMIN 2.9 g/dL (3.4-5.0); BILIRUBIN,TOTAL 0.9 mg/dL (0.1-1.0); CALCIUM, TOTAL 9.8 mg/dL (8.8-10.5); CREATININE 5.01 mg/dL (0.60-1.30); MAGNESIUM 3.5 mg/dL (1.80-2.40); POTASSIUM 5.4 mmol/L (3.5-5.1); THYROID STIMULATING HORMONE 13.08 uIU/mL (0.36-3.74); TOTAL PROTEIN, SERUM 6.8 g/dL (6.4-8.2)
[2021-08-30] MEDS ORDERED: SODIUM CHLORIDE 0.9% 100 ML ONE (12:34)
[2021-08-30 12:54] LABS: HEMATOCRIT 32.6 % (36-46); HEMOGLOBIN 9.7 g/dL (12.0-16.0); MEAN CORPUSCULAR HEMOGLOBIN 23.8 pg (26.0-34.0); MEAN CORPUSCULAR HGB CONC 29.8 G/dL (31.0-37.0); MEAN CORPUSCULAR VOLUME 80 fL (80-100); PLATELET COUNT (AUTO) 64 K/uL (150-450); RED BLOOD CELL COUNT(AUTO) 4.08 MIL/uL (4.00-5.20); RED CELL DISTRIBUTION WIDTH 20.8 % (11.5-14.5)
[2021-08-30] MEDS ORDERED: LEVOTHYROXINE SODIUM 100 MCG VIAL IVP SCH (13:00)
[2021-08-30] MEDS ORDERED: NOREPINEPHRINE 4 MG/D5%-WATER 250 ML IV ONE (13:03)
[2021-08-30 13:06] LABS: PHOSPHORUS 9.8 mg/dL (2.5-4.9)
[2021-08-30 13:06] LABS: ALBUMIN 2.4 g/dL (3.4-5.0); BILIRUBIN,TOTAL 0.8 mg/dL (0.1-1.0); CREATININE 4.3 mg/dL (0.60-1.30); MAGNESIUM 3.3 mg/dL (1.80-2.40); PHOSPHORUS 8.7 mg/dL (2.5-4.9); POTASSIUM 5.1 mmol/L (3.5-5.1); TOTAL PROTEIN, SERUM 5.7 g/dL (6.4-8.2)
[2021-08-30 13:09] LABS: INR 1.6 (0.9-1.1); PROTHROMBIN TIME 16.5 SEC (9.4-11.6)
[2021-08-30 13:13] LABS: CALCIUM, TOTAL 12.7 mg/dL (8.8-10.5)
[2021-08-30] MEDS ORDERED: NOREPINEPHRINE BITARTRATE 8 MG in DEXTROSE 5%-WATER 242 ML IV PRN (13:15)
[2021-08-30] MEDS ORDERED: PHENYLEPHRINE 200 MG/D5%-WATER 250 ML IV PRN (13:15)
[2021-08-30] MEDS ORDERED: VASOPRESSIN 40 UNITS in DEXTROSE 5%-WATER 98 ML IV PRN (13:15)
[2021-08-30 14:02] LABS: BAND NEUTROPHILS % (MANUAL) 0 % (0-5)
[2021-08-30 14:05] LABS: CORRECTED WHITE BLOOD COUNT 8.7 K/uL (4.5-11.0); LYMPHOCYTES % (MANUAL) 8 % (22-44); MONOCYTES % (MANUAL) 1 % (2-9); SEGMENTED NEUTROPHILS % 91 % (40-70)
[2021-08-30 14:23] LABS: BAND NEUTROPHILS % (MANUAL) 11 % (0-5); EOSINOPHILS % (MANUAL) 4 % (1-6); LYMPHOCYTES % (MANUAL) 24 % (22-44); MONOCYTES % (MANUAL) 1 % (2-9); SEGMENTED NEUTROPHILS % 60 % (40-70)
[2021-08-30] MEDS ORDERED: SODIUM CHLORIDE 0.9% 500 ML IV ONE (15:15)
[2021-08-30] MEDS ORDERED: FentaNYL CIT 1000MCG/0.9% NACL 100 ML IV ONE (15:27)
[2021-08-30] MEDS ORDERED: FentaNYL CIT 1000MCG/0.9% NACL 100 ML IV PRN (15:30)
[2021-08-30] MEDS ORDERED: EPINEPHrine 2 MG in DEXTROSE 5%-WATER 248 ML IV PRN (15:45)
[2021-08-30] MEDS ORDERED: SODIUM BICARBONATE [ADULT] 8.4% 50 MEQ/50 ML SYRINGE IVP ONE (15:58)
[2021-08-30] MEDS ORDERED: HEPARIN SODIUM,PORCINE 1,000 UNITS/ML VIAL IVCATH ONE ×2 (16:00)
== END 2021-08-30 17:00 | DRG 871 ==
LOC: EMS 16:03 → 5N 08-27 00:03 → ICU 08-30 09:47
PROVIDERS: ADMIT Internal Medicine; ATTEND Internal Medicine
PROC: 5A1935Z Respiratory Ventilation, Less than 24 Consecutive Hours (ICD-10-PCS; principal; 2021-08-30)
PROC: 0BH17EZ Insertion of Endotracheal Airway into Trachea, Via Natural or Artificial Opening (ICD-10-PCS; 2021-08-30)
PROC: 06HY33Z Insertion of Infusion Device into Lower Vein, Percutaneous Approach (ICD-10-PCS; 2021-08-30)
PROC: B54BZZA Ultrasonography of Right Lower Extremity Veins, Guidance (ICD-10-PCS; 2021-08-30)
PROC: 5A12012 Performance of Cardiac Output, Single, Manual (ICD-10-PCS; 2021-08-30)
PROC: 04HY32Z Insertion of Monitoring Device into Lower Artery, Percutaneous Approach (ICD-10-PCS; 2021-08-30)
DX: A41.9 Sepsis, unspecified organism (principal); I50.43 Acute on chronic combined systolic (congestive) and diastolic (congestive) heart failure; J96.00 Acute respiratory failure, unspecified whether with hypoxia or hypercapnia; R65.21 Severe sepsis with septic shock; I13.0 Hypertensive heart and chronic kidney disease with heart failure and stage 1 through stage 4 chronic kidney disease, or unspecified chronic kidney disease; L03.116 Cellulitis of left lower limb; N17.9 Acute kidney failure, unspecified; L03.115 Cellulitis of right lower limb; I42.9 Cardiomyopathy, unspecified; I48.91 Unspecified atrial fibrillation; E78.5 Hyperlipidemia, unspecified; N18.9 Chronic kidney disease, unspecified; Z20.822 Contact with and (suspected) exposure to COVID-19; E11.22 Type 2 diabetes mellitus with diabetic chronic kidney disease; E87.5 Hyperkalemia; I46.9 Cardiac arrest, cause unspecified; Z78.1 Physical restraint status; Z79.01 Long term (current) use of anticoagulants; Z79.82 Long term (current) use of aspirin; Z79.899 Other long term (current) drug therapy; Z82.49 Family history of ischemic heart disease and other diseases of the circulatory system; Z90.710 Acquired absence of both cervix and uterus
CPT/HCPCS: 51701; 70450; 71045; 76770; 80053; 81001; 81003; 82140; 82550; 83735; 83880; 84100; 84443; 84484; 85025; 85610; 85730; 87040; 87340; 90935; 93005; 94002; 99285; J0171; J0456; J1265; J1644; J1940; J1956; J2270; J2370; J2405; J2543; J3370; J3490; J7030; J7040; J7050; J7060; Q9967; 36415-L1; 36415-TC; U0003